=== PATIENT | male | born 1985 | race Caucasian/White ===

== ENCOUNTER 2023-01-07 07:57 | Outpatient (CLI) | payer OTHER, SELFPAY | END 2023-01-07 07:58 | disposition home or self-care (01) | PROVIDERS: PCP Family Medicine; Referring Provider Family Medicine; Visit Provider Family Medicine | DX: Z13.1 Encounter for screening for diabetes mellitus (principal); Z13.6 Encounter for screening for cardiovascular disorders | CPT/HCPCS: 80061; 82947 ==

== ENCOUNTER 2024-01-11 08:03 | Outpatient (CLI) | payer BC, SELFPAY | END 2024-01-11 08:04 | disposition home or self-care (01) | LOC: NFLDREF 01-12 11:05 | PROVIDERS: PCP Family Medicine; Referring Provider Family Medicine; Visit Provider Family Medicine | DX: E78.5 Hyperlipidemia, unspecified (principal) | CPT/HCPCS: 80061 ==